=== PATIENT | male | born 1980 | race Caucasian/White ===

== ENCOUNTER 2018-11-01 19:38 | Emergency (ER) | payer BC, OTHER ==
[2018-11-01] MEDS ORDERED: ACETAMINOPHEN 500 MG TAB ONE (20:23)
[2018-11-01] MEDS ORDERED: OSELTAMIVIR 75 MG CAP ONE (21:51)
[2018-11-01] MEDS ORDERED: HYDROCODONE/CHLORPHEN 5 ML/OSYR ONE (21:52)
[2018-11-01] MEDS ORDERED: IBUPROFEN 400 MG TAB ONE (21:52)
--- NOTE | 2018-11-01 21:58 | RAD REPORT ---
EXAM DESCRIPTION: RAD - Chest Single View - 11/01/2018 9:34 pm CLINICAL HISTORY: Congestion;Cough Chest pain. COMPARISON: CHEST PA AND LAT 2 VIEW dated 04/12/2011 FINDINGS: Portable technique limits examination quality. The lungs are grossly clear. The heart is normal in size. No displaced fractures. IMPRESSION: No acute intrathoracic process suspected.
--- NOTE | 2018-11-01 22:10 | ER ---
Nurse's Notes [facility] Name: Alexi Carcamo Age: 38 yrs Sex: Male : 1980 Arrival Date: 11/01/2018 Time: 19:40 Bed 9 Private MD: John Leone E Diagnosis: Influenza due to unidentified influenza virus;Fever presenting with conditions classified elsewhere Presentation: 11/01 20:07 Presenting complaint: Patient states: started about 0130 today. fever, feeling weak, dm5 cough, congestion. Transition of care: patient was not received from another setting of care. Onset of symptoms was November 01, 2018. Risk Assessment: Do you want to hurt yourself or someone else? Patient reports no desire to harm self or others. Initial Sepsis Screen: Does the patient meet any 2 criteria? No. Patient's initial sepsis screen is negative. Does the patient have a suspected source of infection? No. Patient's initial sepsis screen is negative. Care prior to arrival: None. 20:07 Method Of Arrival: Ambulatory dm5 20:07 Acuity: JANET 3 dm5 Triage Assessment: 20:08 General: Appears in no apparent distress. uncomfortable, Behavior is calm, cooperative. dm5 Pain: Complains of pain in body aches. Respiratory: Reports shortness of breath cough that is Airway is patent Respiratory effort is even, unlabored, Respiratory pattern is regular, Breath sounds are clear. Derm: Skin is pink, warm \T\ dry. Historical: - Allergies: 20:08 No Known Allergies; dm5 - Home Meds: 20:08 None [Active]; dm5 - PMHx: 20:08 None; dm5 - PSHx: 20:08 thumb surgery; dm5 - Immunization history:: Last tetanus immunization: unknown. - Social history:: Smoking status: Patient/guardian denies using tobacco. - Ebola Screening: : Patient negative for fever greater than or equal to 101.5 degrees Fahrenheit, and additional compatible Ebola Virus Disease symptoms Patient denies exposure to infectious person Patient denies travel to an Ebola-affected area in the 21 days before illness onset. Screenin:20 Abuse screen: Denies threats or abuse. Nutritional screening: No deficits noted. fc Tuberculosis screening: No symptoms or risk factors identified. Fall Risk None identified. Assessment: 21:20 General: Appears uncomfortable, obese, Behavior is calm, cooperative, appropriate for fc age. Pain:. 21:36 Pain: Complains of pain in chest Quality of pain is described as aching, dull, Is fc episodic, Aggravated by coughing. Neuro: Level of Consciousness is awake, alert, obeys commands, Oriented to person, place, time, situation, Appropriate for age. Cardiovascular: Reports chest pain, shortness of breath, with cough Heart tones S1 S2 Capillary refill < 3 seconds Pulses are all present. Respiratory: Reports shortness of breath cough that is non-productive, Airway is patent Trachea midline Respiratory effort is even, unlabored, Respiratory pattern is regular, symmetrical, Breath sounds are clear bilaterally. the patient has mild shortness of breath. GI: No deficits noted. : No deficits noted. EENT: Reports nasal congestion. Derm: Skin is pink, warm \T\ dry. Musculoskeletal: Circulation, motion, and sensation intact. Capillary refill < 3 seconds, Range of motion: intact in all extremities. 22:10 Reassessment: No changes from previously documented assessment. Patient and/or family fc updated on plan of care and expected duration. Pain level reassessed. Patient is alert, oriented x 3, equal unlabored respirations, skin warm/dry/pink. Pt is pending discharge. Vital Signs: 20:08 BP 119 / 84; Pulse 129; Resp 20; Temp 103; Pulse Ox 95% on R/A; Weight 99.79 kg; Height dm5 5 ft. 7 in. (170.18 cm); 21:48 BP 119 / 69; Pulse 117; Resp 20; Temp 100.7; Pulse Ox 95% on R/A; Pain 6/10; fc 22:31 BP 122 / 73; Pulse 108; Resp 20; Temp 100.4(O); Pulse Ox 95% on R/A; Pain 4/10; fc 20:08 Body Mass Index 34.46 (99.79 kg, 170.18 cm) dm5 ED Course: 19:40 Patient arrived in ED. am2 19:40 John Leone MD is Private Physician. am2 20:07 Triage completed. dm5 20:08 Arm band placed on right wrist. dm5 20:25 Ashley Moreland FNP-C is [facility]. snw 20:25 Michael Chu MD is Attending Physician. snw 21:20 Patient has correct armband on for positive identification. Bed in low position. Call fc light in reach. 21:20 No provider procedures requiring assistance completed. Patient did not have IV access fc during this emergency room visit. 21:34 Chest Single View XRAY In Process Unspecified. EDMS 22:09 John Leone MD is Referral Physician. snw Administered Medications: 20:15 Drug: Tylenol 1000 mg Route: PO; dm5 21:54 Follow up: Response: No adverse reaction; Temperature is decreased fc 21:42 Drug: Motrin 400 mg Route: PO; fc 22:31 Follow up: Response: No adverse reaction; Temperature is decreased fc 21:42 Drug: Tamiflu 75 mg Route: PO; fc 22:31 Follow up: Response: No adverse reaction; No change in condition fc 21:42 Drug: Tussionex Pennkinetic ER 5 ml Route: PO; fc 22:31 Follow up: Response: No adverse reaction; Marked relief of symptoms fc Outcome: 22:09 Discharge ordered by . snw 22:33 Discharged to home ambulatory, with family. fc 22:33 Condition: good 22:33 Discharge instructions given to patient, family, Instructed on discharge instructions, follow up and referral plans. no drinking with medication, no driving heavy equipment, medication usage, Demonstrated understanding of instructions, follow-up care, medications, Prescriptions given X 3. 22:34 Patient left the ED. fc Signatures: Dispatcher [employer] EDUT Jacqueline Beauchamp RN RN dm5 Ashley Moreland, CNC OPERATOR-C CNC OPERATOR-Csnw Michelle Martinez RN RN Farrah Butt am2 Corrections: (The following items were deleted from the chart) 21:37 21:20 General: Appears uncomfortable, obese, Behavior is calm, cooperative, appropriate fc for age, fc
--- NOTE | 2018-11-01 22:10 | EDPHYS ---
Physician Documentation [facility] Name: Alexi Carcamo Age: 38 yrs Sex: Male : 1980 Arrival Date: 11/01/2018 Time: 19:40 Bed 9 Private MD: John Leone E ED Physician Michael Chu HPI: 11/01 21:37 This 38 yrs old Male presents to ER via Ambulatory with complaints of Fever, snw Cough, Congestion. 21:37 The patient reports fever, that was measured at 103 degrees Fahrenheit. Onset: The snw symptoms/episode began/occurred suddenly, this morning. Modifying factors: there are no obvious modifying factors. Associated signs and symptoms: Pertinent positives: chills, cough, vomiting. Severity of symptoms: At their worst the symptoms were moderate. The patient has not experienced similar symptoms in the past. The patient has not recently seen a physician. Historical: - Allergies: 20:08 No Known Allergies; dm5 - Home Meds: 20:08 None [Active]; dm5 - PMHx: 20:08 None; dm5 - PSHx: 20:08 thumb surgery; dm5 - Immunization history:: Last tetanus immunization: unknown. - Social history:: Smoking status: Patient/guardian denies using tobacco. - Ebola Screening: : Patient negative for fever greater than or equal to 101.5 degrees Fahrenheit, and additional compatible Ebola Virus Disease symptoms Patient denies exposure to infectious person Patient denies travel to an Ebola-affected area in the 21 days before illness onset. ROS: 21:36 ENT: Negative for injury, pain, and discharge, Neck: Negative for injury, pain, and snw swelling, Cardiovascular: Negative for chest pain, palpitations, and edema. 21:36 Back: Negative for injury and pain, : Negative for injury, bleeding, discharge, and swelling, MS/Extremity: Negative for injury and deformity, Skin: Negative for injury, rash, and discoloration, Neuro: Negative for headache, weakness, numbness, tingling, and seizure. 21:36 Constitutional: Positive for body aches, chills, fatigue, fever, malaise. 21:36 Eyes: Positive for redness. 21:36 Respiratory: Positive for cough. 21:36 Abdomen/GI: Positive for vomiting. Exam: 21:35 Head/Face: Normocephalic, atraumatic. Eyes: Pupils equal round and reactive to light, snw extra-ocular motions intact. Lids and lashes normal. Conjunctiva and sclera are non-icteric and not injected. Cornea within normal limits. Periorbital areas with no swelling, redness, or edema. ENT: Nares patent. No nasal discharge, no septal abnormalities noted. Tympanic membranes are normal and external auditory canals are clear. Oropharynx with no redness, swelling, or masses, exudates, or evidence of obstruction, uvula midline. Mucous membranes moist. Neck: Trachea midline, no thyromegaly or masses palpated, and no cervical lymphadenopathy. Supple, full range of motion without nuchal rigidity, or vertebral point tenderness. No Meningismus. Chest/axilla: Normal chest wall appearance and motion. Nontender with no deformity. No lesions are appreciated. 21:35 Abdomen/GI: Soft, non-tender, with normal bowel sounds. No distension or tympany. No guarding or rebound. No evidence of tenderness throughout. Back: No spinal tenderness. No costovertebral tenderness. Full range of motion. Skin: Warm, dry with normal turgor. Normal color with no rashes, no lesions, and no evidence of cellulitis. MS/ Extremity: Pulses equal, no cyanosis. Neurovascular intact. Full, normal range of motion. Neuro: Awake and alert, GCS 15, oriented to person, place, time, and situation. Cranial nerves II-XII grossly intact. Motor strength 5/5 in all extremities. Sensory grossly intact. Cerebellar exam normal. Normal gait. Psych: Awake, alert, with orientation to person, place and time. Behavior, mood, and affect are within normal limits. 21:35 Constitutional: The patient appears alert, awake, febrile, uncomfortable. 21:35 Cardiovascular: Rate: tachycardic, Rhythm: regular, Heart sounds: normal. 21:35 Respiratory: the patient does not display signs of respiratory distress, Respirations: no acute changes, Breath sounds: are clear throughout, + cough. Vital Signs: 20:08 BP 119 / 84; Pulse 129; Resp 20; Temp 103; Pulse Ox 95% on R/A; Weight 99.79 kg; Height dm5 5 ft. 7 in. (170.18 cm); 21:48 BP 119 / 69; Pulse 117; Resp 20; Temp 100.7; Pulse Ox 95% on R/A; Pain 6/10; fc 22:31 BP 122 / 73; Pulse 108; Resp 20; Temp 100.4(O); Pulse Ox 95% on R/A; Pain 4/10; fc 20:08 Body Mass Index 34.46 (99.79 kg, 170.18 cm) dm5 MDM: 21:26 Patient medically screened. snw 22:10 Data reviewed: vital signs, nurses notes. Data interpreted: Pulse oximetry: on room air snw is 95 %. Interpretation: acceptable. Counseling: I had a detailed discussion with the patient and/or guardian regarding: the historical points, exam findings, and any diagnostic results supporting the discharge/admit diagnosis, lab results, radiology results, the need for outpatient follow up, to return to the emergency department if symptoms worsen or persist or if there are any questions or concerns that arise at home. Special discussion: Based on the history and exam findings, there is no indication for further emergent testing or inpatient evaluation. I discussed with the patient/guardian the need to see the primary care provider for further evaluation of the symptoms. 11/01 20:10 Order name: Flu; Complete Time: 21:26 dm5 11/01 20:10 Order name: Chest Single View XRAY; Complete Time: 22:08 dm5 Administered Medications: 20:15 Drug: Tylenol 1000 mg Route: PO; dm5 21:54 Follow up: Response: No adverse reaction; Temperature is decreased fc 21:42 Drug: Motrin 400 mg Route: PO; fc 22:31 Follow up: Response: No adverse reaction; Temperature is decreased fc 21:42 Drug: Tamiflu 75 mg Route: PO; fc 22:31 Follow up: Response: No adverse reaction; No change in condition fc 21:42 Drug: Tussionex Pennkinetic ER 5 ml Route: PO; fc 22:31 Follow up: Response: No adverse reaction; Marked relief of symptoms fc Disposition: 11/02 06:25 Co-signature as Attending Physician, Michael Chu MD Available for consultation at ps1 all times . Disposition: 11/01/18 22:09 Discharged to Home. Impression: Influenza due to unidentified influenza virus, Fever presenting with conditions classified elsewhere. - Condition is Stable. - Discharge Instructions: Ibuprofen Dosage Chart, Pediatric, Fever, Adult, Influenza, Adult, Rehydration, Adult. - Prescriptions for Zofran 4 mg Oral Tablet - take 1 tablet by ORAL route every 12 hours As needed; 20 tablet. Diclofenac Sodium 75 mg Oral Tablet Sustained Release - take 1 tablet by ORAL route 2 times per day; 30 tablet. Tamiflu 75 mg Oral Capsule - take 1 tablet by ORAL route every 12 hours for 5 days; 10 tablet. - Work release form, Medication Reconciliation Form, Thank You Letter, Antibiotic Education, Prescription Opioid Use form. - Follow up: John Leone MD; When: 2 - 3 days; Reason: Recheck today's complaints, Continuance of care, Re-evaluation by your physician. Follow up: Emergency Department; When: As needed; Reason: Worsening of condition. Signatures: Dispatcher [employer] EDMS Jacqueline Beauchamp, RN RN dm5 Ashley Moreland, ASSEMBLER FOR PULLER OVER HAND-C ASSEMBLER FOR PULLER OVER HAND-Csnw Michelle Martinez RN RN fc Michael Chu MD MD ps1 Corrections: (The following items were deleted from the chart) 11/01 22:34 22:09 11/01/2018 22:09 Discharged to Home. Impression: Influenza due to unidentified fc influenza virus; Fever presenting with conditions classified elsewhere. Condition is Stable. Forms are Medication Reconciliation Form, Thank You Letter, Antibiotic Education, Prescription Opioid Use. Follow up: John Leone; When: 2 - 3 days; Reason: Recheck today's complaints, Continuance of care, Re-evaluation by your physician. Follow up: Emergency Department; When: As needed; Reason: Worsening of condition. snw
== END 2018-11-01 22:34 | disposition home or self-care (01) ==
LOC: ER 19:38
DX: J11.1 Influenza due to unidentified influenza virus with other respiratory manifestations (principal)
CPT/HCPCS: 71045; 87804; 99283

== ENCOUNTER 2023-02-07 21:42 | Inpatient (IN) | payer BC ==
--- OUTSIDE RECORDS SUMMARY | 2023-02-07 21:45 | XMS REPORT | Continuity of Care Document ---
:1980 Author Organization [facility] t Address [address] [place] [id number] Care Team Providers Name Role Phone MILY GIBBS Primary Care Physician Unavailable Jacqui Attending Clinician Unavailable Sadaf Attending Clinician Unavailable SADE ARIAS Attending Clinician Unavailable Sade Arias DO Attending Clinician Doctor Unassigned, [place] Attending Clinician Unavailable WINSTON NATHAN Attending Clinician Unavailable , [facility] Attending Clinician Unavailable Winston Nathan MD Attending Clinician Jacqui Admitting Clinician Unavailable Sadaf Admitting Clinician Unavailable YANNA SHAH Admitting Clinician Unavailable Payers Payer Name Policy Type Policy Number Effective Date Expiration Date S ace [place]: [id number] 00:[place]:00 [place] [facility] [id number] 2017 00:00:00 OUT OF STATE Problems This patient has no known problems. Allergies, Adverse Reactions, Alerts Allergy Allergy Status Severity Reaction(s) Onset Inactive Treating Comm ents Source Name Type Date Date Clinician NO KNOWN Drug Active Univers ALLERGIE Class ity of [facility] Social History Social Habit Start Date Stop Date Quantity Comments Source Exposure to 2021-12-25 2022-01-04 Not sure [facility] SARS-CoV-2 (event) [facility]00[facility] [birth year] [facility] 00:00:00 00:00:00 Medical Branch Smoking Status Start Date Stop Date Source Unknown if ever smoked General acute hospital Medications Ordered Filled Start Stop Current Ordering Indication Dosage Frequency Signature Comments Components Source Medication Medication Date Date Medication? Clinician (SIG) Name Name iodixanol 2021- No [id number] 120mL 120 mL, Univers (VISIPAQUE 01-04 Intravenou it y of 320-150 mL) 12:00: 11:56 s, ONCE, 1 [place] injection 00 :00 dose, On Medica l 120 mL Alejandra Branch 01/04/22 at 0700, Routine Vital Signs Vital Name Observation Time Observation Value Comments Source Systolic blood 2022-01-04 13:00:00 126 mm[Hg] Univer sity [facility] Diastolic blood 2022-01-04 13:00:00 84 [facility]Hg[facility] 2022-01-04 13:00:00 98 /min [facility] Respiratory rate 2022-01-04 13:00:00 18 /min [facility] Oxygen saturation in 2022-01-04 13:00:00 93 /min [facility] Arterial blood by [facility] Pulse oximetry [place] Body temperature 2022-01-04 11:09:00 37.94 Muriel [facility] Body height 2022-01-04 11:09:00 170.2 cm [facility] Body weight 2022-01-04 11:09:00 92.987 kg [facility] BMI 2022-01-04 11:09:00 32.11 kg/m2 [facility] Procedures Procedure Date / Time Performed Performing Clinician Mahendra navarro CT ABDOMEN PELVIS W 2022-01-04 11:58:56 Yanna Shah [facility] CONTRAST [facility] Branch LIPASE 2022-01-04 11:12:00 Yanna Shah [facility] COMP. METABOLIC PANEL 2022-01-04 11:12:00 Yanna Shah [facility] ([id number]) [facility] CBC WITH DIFF 2022-01-04 11:12:00 Yanna Shah [facility] URINALYSIS 2022-01-04 11:12:00 Yanna Shah [facility] CONSENT/REFUSAL FOR 2022-01-04 11:00:52 [facility]igned, [facility] AND Name Medical Branch TREATMENT NOTICE OF PRIVACY 2022-01-04 11:00:38 Doctor Unassigned, No Univ [facility] PRACTICES Name Medical Branch Encounters Start End Encounter Admission Attending Care Care Encounter Source Date/Time Date/Time Type Type Clinicians Facility Department ID 2023-01-08 2023-01-08 Outpatient FOG_Gharbao AOSM AOSM [id number] [place] 00:00:00 00:00:00 jenna_Franko [id number] [facility] 2023-01-04 2023-01-04 Outpatient FOG_Edwards AOSM AOSM [address] 00:00:00 00:00:00 _Dejuan [id number] [facility] 2022-12-31 2022-12-31 Outpatient FOG_Edwards AOSM AOSM [address] [place] 00:00:00 00:00:00 _Dejuan [id number] [facility] 2022-12-07 2022-12-07 Outpatient FOG_Edwards AOSM AOSM [address] [place] 00:00:00 00:00:00 _Dejuan [id number] [facility] 2022-01-04 2022-01-04 Emergency X CAMRON ARIAS ERT [id number] Univers 06:01:00 09:02:00 SADE vieira [facility] 2022-01-04 2022-01-04 Emergency CAMRON Arias [id number] Univers 06:01:00 09:02:00 Sade CERON 350.1.13.10 isha [facility] [id number] [facility] [id number] [place] [address] Branch 2022-01-04 2022-01-04 Orders Doctor PINEDA [id number] Univers 00:00:00 00:00:00 Only Unassigned, PATSY 350.1.13.10 ity of [place] [facility] [id number] [facility] [id number] [facility] 009 Branch 2020-03-01 2020-03-01 Outpatient R ALEXANDRA [facility] [id number] Univers 15:30:00 15:30:00 WINSTON vieira of [facility] 2020-03-01 2020-03-01 Tool Technician 1, Adc Lab [facility] [id number] Univers 15:08:02 15:23:02 Visit Winston Nathan [id number] ity of [place] [id number] [facility] [id number] [place] [address] Branch Results Test Description Test Time Test Comments Results Result Comments Source Complete Metabolic Panel 2022-01-04 11:41:25 Test Item Value Reference Range Interpretation Comme nts NA (test code = 4922868131) 137 mmol/L 135-145 K (test code = 7300210510) 4.0 mmol/L 3.5-5.0 CL (test code = 1965107865) 105 mmol/L 98-108 CO2 TOTAL (test code = 26 mmol/L 23-31 2729728151) AGAP (test code = 4944331467) 2-16 BUN (test code = 7918155070) 8 mg/dL 7-23 GLUCOSE (test code = 9184346682) 108 mg/dL 70-110 CREATININE (test code = 0.68 mg/dL 0.60-1.25 5396646594) TOTAL BILI (test code = 0.5 mg/dL 0.1-1.7 4792814701) CALCIUM (test code = 7087840029) 8.6 mg/dL 8.6-10.6 T PROTEIN (test code = 6.7 g/dL 6.3-8.2 2909143070) ALBUMIN (test code = 1380862144) 4.0 g/dL 3.5-5.0 ALK PHOS (test code = 0131541721) 61 U/L 34-122 ALTv (test code = 1742-6) 19 U/L 5-50 AST(SGOT) (test code = 28 U/L 13-40 0840012304) eGFR (test code = 4409772294) mL/min/1.73m2 ADELITA (test code = ADELITA) Association of Glomerular Filtration Rate (GFR) and Staging of Kidney Disease* + +--------- + ----+| GFR (mL/min/1.73 m2) ?| With Kidney Damage ?| ?Without Kidney Damage+ +--- + +| ?>90 ?| ?Stage one ?| ? Normal ?+ +-------- + -----+| ?60-89 ?| ?Stage two ?| ? Decreased GFR ? + +--------- + ----+| ?30-59 ?| ?Stage three ?| ? Stage three ? + +--------- + ----+| ?15-29 ?| ?Stage four ? | ? Stage four ?+ +-------- + -----+| ?<15 (or dialysis) ? ?| ?Stage five ? | ? Stage five ?+ +-------- + -----+ *Each stage assumes the associated GFR level has been in effect for at least three months. ?Stages 1 to 5, with or without kidney disease, indicate chronic kidney disease. Notes: Determination of stages one and two (with eGFR >59mL/min/1.73 m2) requires estimation of kidney damage for at least three months as defined by structural or functional abnormalities of the kidney, manifested by either:Pathological abnormalities or Markers of kidney damage (including abnormalities in the composition of the blood or urine or abnormalities in imaging tests). [facility], [id number] 11:40:45 Test Item Value Reference Range Interpretation Comments LIPASE (test code = 3793187649) 41 U/L 0-220 Lab Interpretation (test code = Normal 00478-0) [facility] with [id number] 11:25:23 Test Item Value Reference Range Interpretation Comments WBC (test code = See_Comment [Automated 1907-2) message] The sy stem which generated this result transmitted reference range : 4.20 - 10.70 10*3/?L. The reference range was not used to interpret this result as normal/abnormal . RBC (test code = See_Comment [Automated 829-8) message] The sy stem which generated this result transmitted reference range : 4.26 - 5.52 10*6/?L. The reference range was not used to interpret this result as normal/abnormal . HGB (test code = 15.7 g/dL 12.2-16.4 718-7) HCT (test code = 45.7 % 38.4-49.3 4544-3) MCV (test code = 96.4 fL 81.7-95.6 H 787-2) MCH (test code = 33.1 pg 26.1-32.7 H 785-6) MCHC (test code = 34.4 g/dL 31.2-35.0 786-4) RDW-SD (test code = 47.7 fL 38.5-51.6 97431-8) RDW-CV (test code = 13.3 % 12.1-15.4 788-0) PLT (test code = See_Comment [Automated 777-3) message] The sy stem which generated this result transmitted reference range : 150 - 328 10*3/ ?L. The reference r jose manuel was not used to interpret this result as normal/abnormal . MPV (test code = 9.8 fL 9.8-13.0 17926-6) NRBC/100 WBC (test See_Comment [Automat ed code = 3523188259) message] The system which generated this result transmitted reference range : 0.0 - 10.0 /100 WBCs. The refer ence range was not u sed to interpret th is result as normal/abnormal . NRBC x10^3 (test code <0.01 See_Comment [Auto mated = 4242377369) message] The s ystem which generated this result transmitted reference range : 10*3/?L. The reference range was not used to interpret this result as normal/abnormal . GRAN MAT (NEUT) % 68.9 % (test code = 770-8) IMM GRAN % (test code 0.60 % = 9655959239) LYMPH % (test code = 17.5 % 736-9) MONO % (test code = 10.2 % 5905-5) EOS % (test code = 2.4 % 713-8) BASO % (test code = 0.4 % 706-2) GRAN MAT x10^3(ANC) 3.71 10*3/uL 1.99-6.95 (test code = 9469463882) IMM GRAN x10^3 (test 0.03 10*3/uL 0.00-0.06 code = 1728316420) LYMPH x10^3 (test code 0.94 10*3/uL 1.09-3.23 L = 731-0) MONO x10^3 (test code 0.55 10*3/uL 0.36-1.02 = 742-7) EOS x10^3 (test code = 0.13 10*3/uL 0.06-0.53 711-2) BASO x10^3 (test code <0.03 0.01-0.09 = 704-7) Lab Interpretation Abnormal (test code = 92978-7) [facility]"
[2023-02-07] MEDS ORDERED: ACETAMINOPHEN 500 MG TAB ONE (22:57)
[2023-02-07] MEDS ORDERED: ONDANSETRON 4 MG/2 ML VIAL ONE (22:57)
[2023-02-07 22:58] LABS: Absolute Lymphocytes (CBC) 0.3 K/uL (0.7-4.9); Hematocrit 44.8 % (39.6-49.0); Lymphocytes % 2.9 % (15.3-44.8); MPV 8.2 fL (7.6-11.3); RBC Red Blood Cell Count 4.82 M/uL (4.33-5.43)
[2023-02-07] MEDS ORDERED: Ringers Lactate 1,000 ML IV ONE (22:58)
[2023-02-07 23:06] LABS: Protime INR 1.09
[2023-02-07 23:15] LABS: Albumin 3.7 g/dL (3.4-5.0); Bilirubin Total 0.7 mg/dL (0.2-1.0); Potassium 3.8 mEq/L (3.5-5.1); Protein, Total 7.5 g/dL (6.4-8.2)
[2023-02-07 23:21] LABS: Blood Morphology Comment NOT SEEN (NOT SEEN); Platelet Estimate ADEQ; White Blood Cell Scan OK (OK)
--- NOTE | 2023-02-08 00:32 | EDPHYS ---
[facility] Name: Alexi Carcamo Age: 42 yrs Sex: Male : 1980 Arrival Date: 02/07/2023 Time: 21:42 Bed 5 Private MD: ED Physician Dinesh Jones HPI: 02/07 22:15 This 42 yrs old Male presents to ER via Wheelchair with complaints of Abdominal Pain, jmm Fever. 22:15 The patient presents with abdominal pain. Onset: The symptoms/episode began/occurred jmm gradually, 1 day(s) ago. The symptoms do not radiate. Associated signs and symptoms: Pertinent positives: nausea and vomiting, diarrhea, fever. The symptoms are described as achy, crampy, intermittent. Modifying factors: The symptoms are alleviated by nothing, the symptoms are aggravated by food. The patient has not experienced similar symptoms in the past. Historical: - Allergies: 22:14 No Known Allergies; kd3 - Immunization history:: Adult Immunizations up to date. - Social history:: Smoking status: Patient reports the use of cigarette tobacco products, smokes one pack cigarettes per day. ROS: 22:15 Constitutional: Positive for body aches, chills, fever. jmm 22:15 Abdomen/GI: Positive for abdominal pain, nausea and vomiting, diarrhea. 22:15 All other systems are negative. Exam: 22:15 Constitutional: This is a well developed, well nourished patient who is awake, alert, jmm and in no acute distress. Head/Face: atraumatic. Eyes: EOMI, no conjunctival erythema appreciated ENT: Moist Mucus Membranes Neck: Trachea midline, Supple Chest/axilla: Normal chest wall appearance and motion. Cardiovascular: Regular rate and rhythm. No edema appreciated Respiratory: Normal respirations, no respiratory distress appreciated 22:15 Skin: General appearance color normal MS/ Extremity: Moves all extremities, no obvious deformities appreciated, no edema noted to the lower extremities Neuro: Awake and alert Psych: Behavior is normal, Mood is normal, Patient is cooperative and pleasant 22:15 Abdomen/GI: Inspection: abdomen appears normal, Bowel sounds: normal, Palpation: soft, mild abdominal tenderness, in all quadrants. Vital Signs: 22:10 BP 115 / 88; Pulse 120; Resp 19; Temp 101.7(O); Pulse Ox 98% ; Weight 96.62 kg; Height kd3 5 ft. 7 in. ; 23:12 BP 117 / 75; Pulse 112; Resp 20; Temp 99.6(O); Pulse Ox 96% on R/A; rv 02/08 00:21 BP 127 / 74; Pulse 121; Resp 18; Pulse Ox 94% on R/A; kl 01:16 BP 117 / 81; Pulse 110; Resp 24; Temp 99; Pulse Ox 96% on R/A; rv 02/07 22:10 Body Mass Index 33.36 (96.62 kg, 170.18 cm) kd3 [place] Coma Score: 01:17 Eye Response: spontaneous(4). Motor Response: obeys commands(6). Verbal Response: rv oriented(5). Total: 15. MDM: 02/07 22:15 Patient medically screened. [facility] 02/08 00:29 Differential diagnosis: appendicitis, bowel obstruction, cholecystitis, Cholelithiasis, [facility] diverticulitis. Data reviewed: vital signs, nurses notes, lab test result(s), radiologic studies, CT scan. Consideration of Admission/Observation Patient was admitted/placed on observation. Escalation of care including admission/observation considered. Management of patient was discussed with the following: Nursing Education Consultant: Dr. Madera. I considered the following discharge prescriptions or medication management in the emergency department Medications were administered in the Emergency Department. See MAR. Counseling: I had a detailed discussion with the patient and/or guardian regarding: the historical points, exam findings, and any diagnostic results supporting the discharge/admit diagnosis, lab results, radiology results, the need for further work-up and treatment in the hospital. ED course: I discussed the patient with Collins Ferreira whom accepted the patient to Dr. Upton's service. . 02/07 22:16 Order name: Blood Culture Adult (2) [facility] 02/07 22:16 Order name: CBC with Diff; Complete Time: 23:22 [facility] 02/07 22:16 Order name: CMP; Complete Time: 23:15 [facility] 02/07 22:16 Order name: Lactate w/ 2H reflex if indic.; Complete Time: 23:15 [facility] 02/07 22:16 Order name: Protime (+inr); Complete Time: 23:08 [facility] 02/07 22:16 Order name: Ptt, Activated; Complete Time: 23:08 [facility] 02/07 22:16 Order name: Lipase; Complete Time: 23:15 [facility] 02/07 22:16 Order name: Influenza Screen (a \T\ B); Complete Time: 23:22 [facility] 02/07 22:16 Order name: [place] Screen Profile; Complete Time: 23:15 [facility] 02/07 23:01 Order name: CBC Smear Scan; Complete Time: 23:22 [facility] 02/07 22:17 Order name: CT Abd/Pelvis - IV Contrast Only [facility] 02/07 22:17 Order name: US Abdomen Limited [facility] 02/07 22:16 Order name: EKG; Complete Time: 22:17 [facility] 02/07 22:16 Order name: Accucheck; Complete Time: 23:10 [facility] 02/07 22:16 Order name: Cardiac monitoring; Complete Time: 23:10 [facility] 02/07 22:16 Order name: EKG - Nurse/Tech; Complete Time: 23:10 [facility] 02/07 22:16 Order name: IV Saline Lock - Large Bore; Complete Time: 23:10 [facility] 02/07 22:16 Order name: Labs collected and sent; Complete Time: 23:10 [facility] 02/07 22:16 Order name: O2 Per Protocol; Complete Time: 23:10 [facility] 02/07 22:16 Order name: O2 Sat Monitoring; Complete Time: 23:10 [facility] 02/07 22:16 Order name: Vital Signs; Complete Time: 23:10 [facility] Administered Medications: 02/07 20:45 Drug: Acetaminophen PO 1000 mg Route: PO; rv 02/08 01:18 Follow up: Response: Temperature is decreased rv 02/07 20:45 Drug: Lactated Ringers Solution IV 2000 ml Route: IV; Rate: 150 bolus; Site: right rv antecubital; 02/08 01:18 Follow up: IV Status: Completed infusion rv 00:45 Drug: Piperacillin-Tazobactam IVPB 3.375 grams Route: IVPB; Infused Over: 60 mins; rv Site: right antecubital; 01:18 Follow up: Response: No adverse reaction; IV Status: Completed infusion rv 01:18 Not Given (Patient Refused): Ondansetron IVP 4 mg IVP once; over 2 minutes rv Disposition: 05:26 Co-signature as Attending Physician, Dinesh Jones MD I agree with the assessment sp4 and plan of care. I reviewed the patient's care provided by the Advanced Practice Provider and agree with the diagnosis and treatment plan. Disposition Summary: 02/08/23 00:31 Hospitalization Ordered Hospitalization Status: Inpatient Admission [facility] Provider: Antwon Upton Location: Telemetry/MedSur (Inpatient) jmm Condition: Stable jmm Problem: new jmm Symptoms: are unchanged jmm Bed/Room Type: Standard [facility] Room Assignment: 409(02/08/23 00:53) cg Diagnosis - Small bowel obstruction jmm - Mononucleosis jmm Forms: - Medication Reconciliation Form jmm - SBAR form jmm Signatures: Dispatcher [employer] EDLiban Arizmendi PA PA jmm Garcia, Cindy, RN RN Igor Reed RN RN Isabel Rosas RN RN kd3 Dinesh Jones MD MD sp4 Corrections: (The following items were deleted from the chart) 00:53 00:31 jmm cg
--- NOTE | 2023-02-08 00:32 | ER ---
Nurse's Notes [facility] Name: Alexi Carcamo Age: 42 yrs Sex: Male : 1980 Arrival Date: 02/07/2023 Time: 21:42 Bed 5 Private MD: Diagnosis: Small bowel obstruction;Mononucleosis Presentation: 02/07 22:10 Chief complaint: Patient states: I started having stomach cramps yesterday and it has kd3 gotten worse since then. My stomach feels hard and painful. I had a bowl movement about 15 minutes ago and it was very watery. I have had a fever at home between 100 and 102. I took gas ex around 7 PM and it didn't help much. Coronavirus screen: Vaccine status: Patient reports being unvaccinated. Ebola Screen: No symptoms or risks identified at this time. Initial Sepsis Screen: Does the patient meet any 2 criteria? No. Patient's initial sepsis screen is negative. Does the patient have a suspected source of infection? No. Patient's initial sepsis screen is negative. Risk Assessment: Do you want to hurt yourself or someone else? Patient reports no desire to harm self or others. Onset of symptoms was February 07, 2023. 22:10 Method Of Arrival: Wheelchair kd3 22:10 Acuity: JANET 3 kd3 Triage Assessment: 22:14 General: Appears uncomfortable, Behavior is calm, cooperative. Pain: Complains of pain kd3 in abdomen. GI: Reports diarrhea. Historical: - Allergies: 22:14 No Known Allergies; kd3 - Immunization history:: Adult Immunizations up to date. - Social history:: Smoking status: Patient reports the use of cigarette tobacco products, smokes one pack cigarettes per day. Screenin:11 [facility] ED Fall Risk Assessment (Adult) History of falling in the last 3 months, rv including since admission No falls in past 3 months (0 pts) Confusion or Disorientation No (0 pts) Intoxicated or Sedated No (0 pts) Impaired Gait No (0 pts) Mobility Assist Device Used No (0 pt) Altered Elimination No (0 pt) Score/Fall Risk Level 0 - 2 = Low Risk Oriented to surroundings, Maintained a safe environment, Educated pt \T\ family on fall prevention, incl call for assistance when getting out of bed, Assessed \T\ reinforced patient's understanding of fall precautions, Provided non-skid footwear, Hourly rounding (assess needs \T\ fall precautionary measures) done, Used ambulatory aids as needed (educated on \T\ assisted with), Used gait belt as appropriate. Abuse screen: Denies threats or abuse. Denies injuries from another. Nutritional screening: No deficits noted. Tuberculosis screening: No symptoms or risk factors identified. Assessment: 23:00 General: Appears uncomfortable, Behavior is calm, cooperative. rv 23:00 Pain: Complains of pain in abdomen. Neuro: Level of Consciousness is awake, alert, rv obeys commands, Oriented to person, place, time, situation. Cardiovascular: Capillary refill < 3 seconds Rhythm is sinus tachycardia. Respiratory: Airway is patent Respiratory effort is even, unlabored. GI: Bowel sounds present X 4 quads. Abdomen is tender to palpation in left upper quadrant and left lower quadrant. : No signs and/or symptoms were reported regarding the genitourinary system. Vital Signs: 22:10 BP 115 / 88; Pulse 120; Resp 19; Temp 101.7(O); Pulse Ox 98% ; Weight 96.62 kg; Height kd3 5 ft. 7 in. ; 23:12 BP 117 / 75; Pulse 112; Resp 20; Temp 99.6(O); Pulse Ox 96% on R/A; rv 02/08 00:21 BP 127 / 74; Pulse 121; Resp 18; Pulse Ox 94% on R/A; kl 01:16 BP 117 / 81; Pulse 110; Resp 24; Temp 99; Pulse Ox 96% on R/A; rv 02/07 22:10 Body Mass Index 33.36 (96.62 kg, 170.18 cm) kd3 [place] Coma Score: 01:17 Eye Response: spontaneous(4). Motor Response: obeys commands(6). Verbal Response: rv oriented(5). Total: 15. ED Course: 02/07 20:40 Inserted saline lock: 20 gauge in right antecubital area, using aseptic technique. rv Blood collected. 20:40 First set of blood cultures drawn by me. rv 21:45 Patient arrived in ED. jaLani 21:49 Liban Kelly PA is PHCP. nafisam 21:49 Dinesh Jones MD is Attending Physician. jmm 22:14 Triage completed. kd3 22:14 Arm band placed on right wrist. kd3 22:54 Radiology exam delayed due to lab results not completed at this time. IV insertion eh4 attempt and/or patient not having appropriate IV at this time. 23:05 Second set of blood cultures drawn by me. rv 23:09 Igor Reed, RN is Primary Nurse. rv 23:12 Patient has correct armband on for positive identification. Bed in low position. Call rv light in reach. Side rails up X 1. Client placed on continuous cardiac and pulse oximetry monitoring. NIBP monitoring applied. hospital monitor on. 23:22 US Abdomen Limited In Process Unspecified. EDMS 23:47 CT Abd/Pelvis - IV Contrast Only In Process Unspecified. EDMS 02/08 00:30 Antwon Upton MD is Hospitalizing Provider. [facility] 01:17 No provider procedures requiring assistance completed. Patient admitted, IV remains in rv place. Administered Medications: 02/07 20:45 Drug: Acetaminophen PO 1000 mg Route: PO; rv 02/08 01:18 Follow up: Response: Temperature is decreased rv 02/07 20:45 Drug: Lactated Ringers Solution IV 2000 ml Route: IV; Rate: 150 bolus; Site: right rv antecubital; 02/08 01:18 Follow up: IV Status: Completed infusion rv 00:45 Drug: Piperacillin-Tazobactam IVPB 3.375 grams Route: IVPB; Infused Over: 60 mins; rv Site: right antecubital; 01:18 Follow up: Response: No adverse reaction; IV Status: Completed infusion rv 01:18 Not Given (Patient Refused): Ondansetron IVP 4 mg IVP once; over 2 minutes rv Medication: 02/07 23:11 VIS not applicable for this client. rv Outcome: 02/08 00:31 Decision to Hospitalize by Provider. [facility] 01:17 Admitted to Tele accompanied by tech, via wheelchair, room 409, with chart, Report rv called to MICHAEL RATLIFF 01:17 Condition: good 01:17 Instructed on the need for admit. 01:19 Patient left the ED. rv Signatures: Dispatcher [employer] EDBessie Zhou RN RN kl Mickail, Joel, PA PA [facility] Igor Reed RN RN rv Alexander, Jessica ja2 Doucette Isabel, RN RN kd3 Mcconnell, [facility]4
[2023-02-08] MEDS ORDERED: NA CHLORIDE 0.9% 100 ML ONE (00:38)
[2023-02-08] MEDS ORDERED: PIPERACIL/TAZO 3.375 GM VIAL IV ONE (00:38)
--- NOTE | 2023-02-08 01:12 | P.HP ---
Certification for Inpatient Patient admitted to: Inpatient With expected LOS: >2 Midnights Patient will require the following post-hospital care: None Practitioner: I am a practitioner with admitting privileges, knowledge of patient current condition, hospital course, and medical plan of care. Services: Services provided to patient in accordance with Admission requirements found in Title 42 Section 412.3 of the Code of Federal Regulations <Collins Ferreira - Last Filed: 02/08/23 01:08> Patient History Date of Service: 02/08/23 Reason for admission: Small bowel obstruction History of Present Illness: 42-year-old otherwise healthy male presents to the emergency department chief complaint of abdominal pain. He reports has been having body aches over the course of last 1 week, started running fevers 2 days ago Tmax 102.4 at home. He also reports some diarrhea earlier today as well as an episode of vomiting on 02/06/2023. He was evaluated here in the emergency department labs are significant for white blood cell count of 11.1, mono positive CT of the abdomen pelvis showed findings concerning for small bowel obstruction, with associated small bowel pneumatosis. Transition point in the right lower abdomen. Correlate for potential venous congestion and/or early ischemia (although there is no associated wall thickening or mural hypoenhancement).. Trace abdominal pelvic free fluid. No free intraperitoneal air or fluid collections. SIRS criteria present, initial lactate less than 2, no hypotension currently. Patient be admitted for bowel obstruction, mononucleosis. ED physician discussed case with general surgery who will see patient. 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, lives at home with family - Social History Smoking Status: Current every day smoker Counseled patient to stop smoking for: less than 10 minutes Smoking therapy provided: No (Patient declined) Alcohol use: No CD- Drugs: No Caffeine use: Yes Place of Residence: Home <Collins Ferreira - Last Filed: 02/08/23 01:08> Date of Service: 02/08/23 <Antwon Upton - Last Filed: 02/08/23 16:36> Review of Systems 10-point ROS is otherwise unremarkable Gastrointestinal: Nausea, Abdominal Pain <Collins Ferreira - Last Filed: 02/08/23 01:08> Physical Examination - Physical Exam General: Alert, In no apparent distress, Oriented x3 HEENT: Atraumatic, PERRLA, Mucous membr. moist/pink, EOMI, Sclerae nonicteric Neck: Supple, 2+ carotid pulse no bruit, No LAD, Without JVD or thyroid abnormality Respiratory: Clear to auscultation bilaterally, Normal air movement Cardiovascular: Regular rate/rhythm, Normal S1 S2 Capillary refill: <2 Seconds Gastrointestinal: Normal bowel sounds, No tenderness, Tenderness (Mild generalized tenderness, worse left upper and left lower quadrant) Musculoskeletal: No tenderness Integumentary: No rashes Neurological: Normal speech, Normal strength at 5/5 x4 extr, Normal tone, Normal affect - Studies Laboratory Data (last 24 hrs) 02/07/23 20:40: PT 12.0, INR 1.09, APTT 30.2 02/07/23 20:40: Sodium 136, Potassium 3.8, BUN 23 H, Creatinine 0.86, Glucose 121 H, Total Bilirubin 0.7, AST 23, ALT 34, Alkaline Phosphatase 64, Lipase 14 02/07/23 20:40: WBC 11.10 H, Hgb 15.1, Hct 44.8, Plt Count 206 Microbiology Data (last 24 hrs): 02/07/23 20:40 Nasopharnyx Influenza Type A Antigen Screen - Final 02/07/23 20:40 Nasopharnyx Influenza Type B Antigen Screen - Final <Collins Ferreira - Last Filed: 02/08/23 01:08> - Studies Laboratory Data (last 24 hrs) 02/07/23 20:40: PT 12.0, INR 1.09, APTT 30.2 02/07/23 20:40: Sodium 136, Potassium 3.8, BUN 23 H, Creatinine 0.86, Glucose 121 H, Total Bilirubin 0.7, AST 23, ALT 34, Alkaline Phosphatase 64, Lipase 14 02/07/23 20:40: WBC 11.10 H, Hgb 15.1, Hct 44.8, Plt Count 206 Microbiology Data (last 24 hrs): 02/07/23 20:40 Nasopharnyx Influenza Type A Antigen Screen - Final 02/07/23 20:40 Nasopharnyx Influenza Type B Antigen Screen - Final <Antwon Upton - Last Filed: 02/08/23 16:36> Assessment and Plan - Plan Assessment: Sepsis-likely viral secondary to mononucleosis Small bowel obstruction Plan: Sepsis-likely viral secondary to mononucleosis Small bowel obstruction N.p.o., IVF, IV antibiotics, surgical consultation. Patient denies previous abdominal surgeries, has never had colonoscopy. Has not been vomiting, mild pain at this time abdomen mildly distended per patient but not firm. We will hold off on NG tube at this time, will place if there is worsening pain, vomiting or distention. Appreciate further input from general surgery. DVT PPX: SCD Code status: Full Discharge Plan: Home Plan to discharge in: Greater than 2 days - Advance Directives Does patient have a Living Will: No Does patient have a Durable POA for Healthcare: No - Code Status/Comfort Care Code Status Assessed: Yes (Full code) Critical Care: No Time Spent Managing Pts Care (In Minutes): 55 <Collins Ferreira - Last Filed: 02/08/23 01:08> Physician Review: Patient Assessed, Agree with Above Assessment and Plan <Antwon Upton - Last Filed: 02/08/23 16:36>
[2023-02-08] MEDS ORDERED: MORPHINE 4 MG/ML SYR IV PRN (01:30)
[2023-02-08] MEDS ORDERED: ONDANSETRON 4 MG/2 ML VIAL IV PRN (01:30)
[2023-02-08] MEDS: D5 0.45 NS 1,000 ML IV SCH ×4 (01:49→20:58)
[2023-02-08 04:24] LABS: Absolute Lymphocytes (CBC) 0.7 K/uL (0.7-4.9); Hematocrit 41.2 % (39.6-49.0); MCV 93.1 fL (80-100); MPV 8.1 fL (7.6-11.3); RBC Red Blood Cell Count 4.42 M/uL (4.33-5.43)
[2023-02-08 04:42] LABS: Albumin 3.2 g/dL (3.4-5.0); Bilirubin Total 0.6 mg/dL (0.2-1.0); Magnesium 2.2 mg/dL (1.6-2.4); Potassium 3.9 mEq/L (3.5-5.1); Protein, Total 6.6 g/dL (6.4-8.2)
[2023-02-08] MEDS: PIPER TAZO 3.375 GM in NA CHLORIDE 0.9% 100 ML IV SCH ×2 (08:54→17:15)
[2023-02-08] MEDS ORDERED: POTASSIUM CL SA 10 MEQ TAB PO ONE (09:00)
[2023-02-08] MEDS ORDERED: ENOXAPARIN 40 MG/0.4 ML SQ SCH (09:00)
--- NOTE | 2023-02-08 11:30 | RAD REPORT ---
EXAM DESCRIPTION: CT - Abdomen Pelvis W Contrast - 02/08/2023 2:10 am CLINICAL HISTORY: Abdominal pain, diarrhea, fever. COMPARISON: Ultrasound of the abdomen from the same date. TECHNIQUE: CT of the abdomen and pelvis was performed following intravenous administration of iodina bautista contrast. Oral contrast was not administered. Axial, coronal, and sagittal soft tissue window rec onstructions were created and sent to PACS. This exam was performed according to our departmental dose-optimization program, which includes autom ated exposure control, adjustment of the mA and/or kV according to patient size and/or use of iterati ve reconstruction technique. FINDINGS: Thoracic: No significant abnormality. Hepatobiliary: No concerning hepatic lesion identified. The portal veins are patent. The gallbladder is unremarkable. No biliary ductal dilatation. Pancreas: Unremarkable. Spleen: Unremarkable. Gastrointestinal: Moderate fluid-filled dilation of small bowel loops with air-fluid levels and pneum atosis. Transition point in the right lower abdomen around axial series 201 image 62. Small bowel loo ps distal to this point are decompressed. No wall thickening or hypoenhancing kim are identified in the small bowel. Trace abdominopelvic free fluid. No free intraperitoneal air. No walled off fluid c ollection. The appendix is normal. There is mild left colonic diverticulosis. Small amount of liquid stool in the colon. The left colon and rectum are decompressed. Adrenals: No abnormality identified in either adrenal gland. Renal: No concerning parenchymal abnormality in either kidney. No hydronephrosis or urolithiasis. Bladder/Reproductive: Poor evaluation of the underdistended urinary bladder by CT technique. Vascular/Lymphatics: Mildly prominent mesenteric and retroperitoneal lymph nodes. Abdominal aorta is normal in caliber. The celiac axis, SMA, and BABS are well-opacified and patent. Musculoskeletal: No concerning osseous lesion identified. Transitional lumbosacral vertebral body, wi th and osseous fusion on the right. IMPRESSION 1. Findings concerning for small bowel obstruction, with associated small bowel pneumat osis. Transition point in the right lower abdomen. Correlate for potential venous congestion and/or e esperanza ischemia (although there is no associated wall thickening or mural hypoenhancement). 2. Trace abdominopelvic free fluid. No free intraperitoneal air or fluid collections. Electronically signed by: Tessa Sloan MD 02/08/2023 12:13 AM CDT Due to temporary technical issues with the PACS/Fluency reporting system, reports are being signed by the in house radiologist without review as a courtesy to ensure prompt reporting. The interpreting r adiologist is fully responsible for the content of the report.
--- NOTE | 2023-02-08 11:31 | RAD REPORT ---
EXAM DESCRIPTION: RAD - Abdomen W Erect - 02/08/2023 10:16 am CLINICAL HISTORY: sbo COMPARISON: Abdomen Pelvis W Contrast dated 02/07/2023 TECHNIQUE: Single AP view of the abdomen. FINDINGS: Moderate distention throughout small bowel loops in the upper and central abdomen, with ma ximal bowel diameter measuring up to 4.3 centimeter. No air-fluid levels, free air, or pneumatosis. N o suspicious calcifications. No significant bony abnormality. IMPRESSION: Moderate distention of small bowel loops as above. Findings do not appear to be signific antly changed compared to the prior CT.
--- NOTE | 2023-02-08 11:39 | RAD REPORT ---
EXAM DESCRIPTION: US - Abdomen Exam Limited - 02/07/2023 11:21 pm CLINICAL HISTORY: EPIGASTRIC PAIN. COMPARISON: None. TECHNIQUE: Ultrasound of the abdomen with Doppler flow imaging was obtained. FINDINGS: Gallbladder: No cholelithiasis or gallbladder wall thickening. Sonographic Yañez sign is not described by the technologist. Bile ducts: No dilatation of the intrahepatic bile ducts. The common bile duct measures 0.4 cm in ole meter at the pelon hepatis. Incidentally noted increased hepatic parenchymal echogenicity. Typical fatty sparing adjacent to the gallbladder. IMPRESSION: 1. No cholelithiasis or acute findings. 2. Hepatic steatosis. Electronically signed by: Tessa Sloan MD 02/07/2023 11:42 PM CDT Due to temporary technical issues with the PACS/Fluency reporting system, reports are being signed by the in house radiologist without review as a courtesy to ensure prompt reporting. The interpreting r adiologist is fully responsible for the content of the report.
[2023-02-08] MEDS ORDERED: Ringers Lactate 1,000 ML IV ONE ×2 (14:10→16:31)
[2023-02-08] MEDS ORDERED: SUCCINYLCHOLINE 20 MG/ML (10 ML) IV ONE (14:58)
[2023-02-08] MEDS ORDERED: MIDAZOLAM HCL 2 MG/2 ML INJ ONE (15:00)
[2023-02-08] MEDS ORDERED: propofoL 200 MG/20 ML VIAL IV ONE ×2 (15:00→15:25)
[2023-02-08] MEDS ORDERED: FENTANYL CITR 250 MCG/5 ML ONE (15:00)
[2023-02-08] MEDS ORDERED: ROCURONIUM 50 MG/5 ML VIAL IV ONE (15:00)
[2023-02-08] MEDS ORDERED: dexAMETHasone 10 MG/ML VIAL ONE (15:31)
[2023-02-08] MEDS ORDERED: SUGAMMADEX SODIUM 200 MG/2 ML VIAL IV ONE ×2 (16:08→16:16)
[2023-02-08] MEDS ORDERED: Mastisol Adhesive Liq ONE (16:13)
--- NOTE | 2023-02-08 16:28 | EKG ---
Test Date: 2023-02-07 Test Time: 22:58:49 Jewel Cupping Machine Operator: RV MEASUREMENT RESULTS: Intervals: Rate: 122 LA: 118 QRSD: 74 QT: 288 QTc: 410 [place]ers: P: 51 LA: 118 QRS: 68 T: 33 INTERPRETIVE STATEMENTS: Sinus tachycardia Otherwise normal ECG No previous ECG available for comparison Electronically Signed On 02-08-23 16:27:26 CDT by Ace Alvarado
--- NOTE | 2023-02-08 16:32 | P.BOP ---
Preoperative diagnosis: Small bowel obstruction , pneumatosis, abd pain Postoperative diagnosis: same Primary procedure: Diagnostic laparoscopy Academic Success Coordinator: Luisa Giles (Vargas) Estimated blood loss: <10cc Specimen: none Findings: small bowel with no ischemia, internal hernia with unknown origin Anesthesia: General Complications: None Transferred to: Recovery Room Condition: Good
[2023-02-08 16:50] VITALS: O2SAT 94
--- NOTE | 2023-02-08 19:32 | CON ---
Date of Consultation: 02/08/2023 Diagnosis: Small bowel obstruction, pneumatosis, peritonitis. History Of Present Illness: This is a case of a 42-year-old patient who comes to the ER complaining of a week history of abdominal pain associated with a nausea, 1 episode of vomiting about 2 days ago. He was at home in early this morning when he did not get better he decided to come to the ER. He h ad a lot of fevers about 2 weeks ago. He has a history of mononucleosis treated by his primary docto r recently. He denies any trauma, any dysuria, hematuria, hematochezia, any melena, any recent trave ling out of the country. Denies any family member sick at home. He has no previous colonoscopies. Review of Systems: As above. Ten points otherwise unremarkable. Past Medical History: None. Past Surgical History: Include left thumb surgery. Social History: He does not drink alcohol. He has smoked occasionally. Patient was counseled about importance of cessation. Family History: Noncontributory. Allergies: NONE. Physical Examination: General: Patient is awake and alert. HEENT: Pupils are equal and reactive, anicteric. Neck: Supple. Chest: Clear. Abdomen: Right lower quadrant and lower abdominal tenderness with guarding. Rectal/Pelvic: Deferred. Extremities: Good capillary refill. Laboratory Data: CAT scan of the abdomen and pelvis as interpreted by Dr. Martínez, finding consistent with small bowel obstruction associated with small bowel pneumatosis, transition point in the right l ower quadrant. Correlate for potential venous congestion or early ischemia. Risks of abdominopelvic fluid. No free air. Laboratory Data: Blood work shows WBC count of 11, hemoglobin of 15.1, platelets of 206. INR is 1.0 9. Potassium 3.9, bicarbonate 24, glucose 138. Assessment: This is a 42-year-old patient who comes to us with small bowel obstruction, also an infl ammatory process in the right lower quadrant, the etiology of that is unknown. There is some associa bautista pneumatosis with it which raised the questions of possible ischemia. I fully explained to the thierry molina different options, diagnostic laparoscopy, possible laparotomy, possible resection with benefit s, alternatives, and risks including, but not limited to, infection, bleeding, damage to adjacent str uctures, anesthesia complication, negative findings, unable to find the area, myocardial infarction, and even . He also understands that he might need more than one surgical intervention. If we d o bowel resection, we might have to send this to the pathologist and then proceed accordingly depends on the findings. He understands the risks. He agreed with the surgery. The OR was emergently call ed. Once again, pneumatosis and possible ischemia, it is concerning for us not to treat him conserva tively. He does not recall eating anything out of the usual or any trauma. He has no previous colon oscopy. SEJAL/MODL Voice ID: [id number] Report ID: [id number]
[2023-02-09] MEDS: PIPER TAZO 3.375 GM in NA CHLORIDE 0.9% 100 ML IV SCH ×2 (00:15→08:38)
[2023-02-09 02:02] VITALS: BMI 33.3
[2023-02-09 04:20] LABS: Absolute Lymphocytes (CBC) 0.6 K/uL (0.7-4.9); Hematocrit 40.2 % (39.6-49.0); Lymphocytes % 12.7 % (15.3-44.8); MCV 94.3 fL (80-100); MPV 8.6 fL (7.6-11.3); RBC Red Blood Cell Count 4.27 M/uL (4.33-5.43)
[2023-02-09 04:35] LABS: Albumin 3.1 g/dL (3.4-5.0); Bilirubin Total 0.4 mg/dL (0.2-1.0); Magnesium 2.3 mg/dL (1.6-2.4); Potassium 4.7 mEq/L (3.5-5.1); Protein, Total 6.8 g/dL (6.4-8.2)
[2023-02-09] MEDS: D5 0.45 NS 1,000 ML IV SCH (08:38)
[2023-02-09 12:09] VITALS: BP 117/66; TEMP 98.5
--- NOTE | 2023-02-09 13:12 | P.DS ---
Admission Date: 02/08/23 Discharge Date: 02/09/23 Reason for Admission: Small bowel obstruction Consultations: 1. 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 Alexi Carcamo is a 42 year old male with no reported past medical history who was admitted to the [facility] on 02/08/2023 for abdominal pain. He was admitted to the Medicine service. Upon further evaluation, his CT abdomen/pelvis revealed, "1. Findings concerning for small bowel obstruction, with associated small bowel pneumatosis. Transition point in the right lower abdomen. Correlate for potential venous congestion and/or early ischemia (although there is no associated wall thickening or mural hypoenhancement). 2. Trace abdominopelvic free fluid. No free intraperitoneal air or fluid collections." General Surgery was consulted and he was evaluated by Dr. Madera. On 02/08/2023, he underwent a diagnostic laparoscopy. Dr. Madera states that he did not find any concerning findings during this procedure. Over the course of his hospitalization, his symptoms improved significantly. He was able to tolerate a regular diet. He has been able to pass flatus and has had a bowel movement, without any symptoms. Dr. Madera has cleared him for discharge with a 10-day course of ciprofloxacin and metronidazole. He states that he will have him follow-up in his clinic on 02/13/2023 On 02/09/2023, he was seen on rounds and deemed medically stable for discharge. He was discharged with instructions to schedule follow-up appointments with his PCP (Dr. Leone) and with General Surgery (Dr. Madera). He was provided prescriptions for ciprofloxacin and metronidazole. He was given the opportunity to ask questions and reported no further questions. Furthermore, all questions were answered to the best of my ability. A copy of this discharge summary will be sent to the above providers to facilitate continuity of care. Today, I personally spent 25 minutes with on his case, of which greater than 50% of the time was spent in patient education, counseling, and coordination of care as described above. Vital Signs/Physical Exam: Temp Pulse Resp BP Pulse Ox 98.5 F 96 H 16 117/66 96 02/09/23 12:00 02/09/23 12:00 02/09/23 12:00 02/09/23 12:00 02/09/23 12:00 General: Alert, In no apparent distress, Oriented x3 HEENT: Atraumatic, Mucous membr. moist/pink, Sclerae nonicteric Neck: JVD not distended Respiratory: Clear to auscultation bilaterally, Normal air movement Cardiovascular: No edema, Regular rate/rhythm, Normal S1 S2, No gallops, No rubs, No murmurs Gastrointestinal: Normal bowel sounds, Soft and benign, Non-distended, No tenderness, No rebound, No guarding, Other (3 laparoscopic surgical sites are covered in clean dressing) Musculoskeletal: No clubbing Integumentary: No rashes Neurological: Normal speech, Normal affect Laboratory Data at Discharge: WBC 4.90 thou/uL (4.3-10.9) 02/09/23 03:52 Hgb 13.4 g/dL (13.6-17.9) L 02/09/23 03:52 Hct 40.2 % (39.6-49.0) 02/09/23 03:52 Plt Count 211 thou/uL (152-406) 02/09/23 03:52 PT 12.0 SECONDS (9.5-12.5) 02/07/23 20:40 INR 1.09 02/07/23 20:40 APTT 30.2 SECONDS (24.3-36.9) 02/07/23 20:40 Sodium 137 mEq/L (136-145) 02/09/23 03:52 Potassium 4.7 mEq/L (3.5-5.1) D 02/09/23 03:52 BUN 13 mg/dL (7-18) 02/09/23 03:52 Creatinine 0.94 mg/dL (0.70-1.30) 02/09/23 03:52 Glucose 135 mg/dL (74-106) H 02/09/23 03:52 Magnesium 2.3 mg/dL (1.6-2.4) 02/09/23 03:52 Total Bilirubin 0.4 mg/dL (0.2-1.0) 02/09/23 03:52 AST 18 U/L (15-37) 02/09/23 03:52 ALT 34 U/L (16-61) 02/09/23 03:52 Alkaline Phosphatase 48 U/L (45-117) 02/09/23 03:52 Lipase 14 U/L (13-75) 02/07/23 20:40 Home Medications: Ciprofloxacin HCl 500 mg PO BID 10 Days #20 tab 02/09/23 metroNIDAZOLE [Metronidazole] 500 mg PO Q8H 10 Days #30 tab 02/09/23 New Medications: Ciprofloxacin HCl 500 mg PO BID 10 Days #20 tab metroNIDAZOLE [Metronidazole] 500 mg PO Q8H 10 Days #30 tab Physician Discharge Instructions: 1. Please call and schedule a follow-up appointment with your PCP (Dr. Leone) in 3-5 days - Your CT scan revealed mild prominence of lymph nodes in your abdomen (mesenteric and retroperitoneal lymph nodes) - please discuss with your PCP for further evaluation - Your abdominal ultrasound revealed that you have a fatty liver. Weight loss has been showed to help fatty liver. Please discuss with your PCP. 2. Please call and schedule a follow-up appointment with General Surgery (Dr. Madera) on 02/13/2023 - He will need to complete the rest of your evaluation as an outpatient Diet: AHA Activity: No lifting more than 10 lbs Followup: John Leone MD [ACTIVE - CAN ADMIT] - Celestine Madera MD [ACTIVE - CAN ADMIT] - Time spent managing pt's care (in minutes): 25
--- NOTE | 2023-02-09 13:34 | PN ---
Date of Progress Note: 02/09/2023 Diagnosis: Small bowel obstruction. Subjective: Patient is doing well. Had diagnostic lab done yesterday. Shows some inflammation, but the obstruction is resolved, at least clinically. He is tolerating diet, passing flatus. No nausea , no vomiting. No abdominal pain at this moment. No dysuria, hematuria, hematochezia, or melena. N o night sweats. Objective: Chest: Clear. Abdomen: Soft and depressible. Intact surgical site. Extremities: Good capillary refill. Laboratory Data: Blood work shows a WBC count of 4.9, hemoglobin of 13.4, and potassium 4.7. Plan: He wants to go home today. He is tolerating diet. He has no abdominal pain. So, we will sen d him home with the condition that the rest of the workup done as an outpatient that may include colo noscopy, a small bowel series. He may also have to see security assistant to look for any conditions that may cause enteritis that may have caused this condition. If the pain comes back or nausea or v omiting, he has to come back to the ER immediately. He understand about the low-fat diet. No spicy food and also no alcohol in the diet. If he goes home today then we will likely see the patient next week to make sure he is doing okay and continue the workup. SEJAL/ABIMAEL Voice ID: [id number] Report ID: [id number]
[2023-02-09] MEDS ORDERED: CIPROFLOXACIN HCL 500 MG TAB PO SCH (14:00)
[2023-02-09] MEDS ORDERED: metroNIDAZOLE 500 MG TABLET PO SCH (14:00)
== END 2023-02-09 14:14 | disposition home health service (06) | DRG 872 ==
LOC: ER 21:42 → ERHOLD 02-08 00:47 → 4TH 02-08 01:05
PROVIDERS: ADMIT Internal Medicine; ATTEND Internal Medicine
DX: A41.89 Other specified sepsis (principal); K56.609 Unspecified intestinal obstruction, unspecified as to partial versus complete obstruction; K63.89 Other specified diseases of intestine; K76.0 Fatty (change of) liver, not elsewhere classified; F17.210 Nicotine dependence, cigarettes, uncomplicated; B27.90 Infectious mononucleosis, unspecified without complication; Z71.6 Tobacco abuse counseling
CPT/HCPCS: 36415; 74019; 74177; 76705; 80053; 83605; 83690; 83735; 85025; 85610; 85730; 86308; 87040; 87804; 93005; 94010; 96361; 96365; 99285; J1100; J2250; J2405; J2543; J2704; J3010; J7120; J7799; Q9967